=== PATIENT | male | born 1990 | race Caucasian/White ===

== ENCOUNTER 2016-10-08 04:07 | Emergency (ER) | payer MEDICAID, OTHER ==
[~2016-10-08] VITALS: Ht 175.3 cm; Wt 65.5 kg
[2016-10-08] MEDS ORDERED: IBUPROFEN 200 MG TABLET PO ONE (04:30)
[2016-10-08] MEDS ORDERED: IBUPROFEN 200 MG TABLET ONE (04:44)
[2016-10-08 04:55] VITALS: BP 146/84
== END 2016-10-08 04:57 | disposition home or self-care (01) ==
LOC: ED 04:55
DX: S93.402A Sprain of unspecified ligament of left ankle, initial encounter (principal); Z87.891 Personal history of nicotine dependence; W19.XXXA Unspecified fall, initial encounter; Y93.89 Activity, other specified; Y92.89 Other specified places as the place of occurrence of the external cause; Y99.8 Other external cause status
CPT/HCPCS: 99282